=== PATIENT | male | born 1995 | race Caucasian/White ===

== ENCOUNTER 2017-11-27 13:17 | Emergency (ER) | payer OTHER ==
[2017-11-27 13:36] VITALS: BP 129/82
--- NOTE | 2017-11-27 13:37 | EDPHY ---
H & P Stated Complaint: n/v, abd pain Time Seen by Provider: 11/27/17 13:37 - Personal History Current Tetanus/Diphtheria Vaccine: Yes Current Tetanus Diphtheria and Acellular Pertussis (TDAP): Yes - Medical/Surgical History Hx Asthma: No Hx Chronic Respiratory Disease: No Hx Diabetes: No Hx Cardiac Disease: No Hx Renal Disease: No Hx Cirrhosis: No Hx Alcoholism: No Hx HIV/AIDS: No Hx Splenectomy or Spleen Trauma: No Other PMH: denies - Social History Smoking Status: Current every day smoker Constitutional: Initial Vital Signs Temperature (C) 36.7 C 11/27/17 13:22 Heart Rate 106 H 11/27/17 13:22 Respiratory Rate 16 11/27/17 13:22 Blood Pressure 127/112 H 11/27/17 13:22 O2 Sat (%) 95 11/27/17 13:22 O2 Delivery Mode Room Air Allergies/Adverse Reactions: No Known Allergies Allergy (Unverified 11/27/17 13:21) Home Medications: Medication Instructions Recorded NK [No Known Home Meds] 11/27/17 ZYRTEC 11/27/17 Medical Decision Making ED Course/Re-evaluation: CHIEF COMPLAINT: Nausea, vomiting HISTORY OF PRESENT ILLNESS: The patient is a 22 y/o male complaining of multiple, intermittent episodes of nausea, vomiting, and abdominal pain onset 6 months ago. These episodes have been occurring more frequently and last around 8-12 hours. These symptoms start around 4 hours after eating food. He has also had 2 episodes of diarrhea, but this is not a regular symptom. Last night he had another episode and noticed a very small amount of blood in his vomit. Denies food intolerance or abdominal surgeries. He has been smoking marijuana regularly for the past 6 years. He is currently feeling good and has no symptoms. Denies chest pain, shortness of breath, urinary complaints, numbness, paresthesias, fever. REVIEW OF SYSTEMS: A 10 point review of systems was performed and is negative with the exception of the elements mentioned in the history of present illness. PHYSICAL EXAM: HR, BP, O2 Sat, RR. Temp noted General Appearance: Alert, well hydrated, appropriate, and non-toxic appearing. Head: Atraumatic without scalp tenderness or obvious injury Eyes: Pupils equal, round, reactive to light and accommodation, EOMI, no trauma , no injection. Ears: Clear bilaterally, no perforation, normal landmarks Nose: Atraumatic, no rhinorrhea, clear. Throat: There is no erythema or exudates, no lesions, normal tonsils, mucus membranes moist. Neck: Supple, nontender, no lymphadenopathy. Respiratory: No retractions, no distress, no wheezes, and no accessory muscle use. Lungs are clear to auscultation bilaterally. Cardiovascular: Regular rate and rhythm, no murmurs, rubs, or gallops. Good capillary refill all extremities. Gastrointestinal: Abdomen is soft, nontender, non-distended, no masses, no rebound, no guarding, no peritoneal signs. Musculoskeletal: Normal active ROM of all extremities, atraumatic. Neurological: Alert, appropriate, and interactive. Non-focal neuro. Skin: No rashes, good turgor, no nodules on palpation. Past medical history: Denies Past surgical history: Denies Family history: Noncontributory Social history: Recently moved to [place], [facility] DIFFERENTIAL DIAGNOSIS: The differential diagnosis for the patient's nausea and vomiting included but was not limited to gastroenteritis, gastritis, appendicitis, and medication side effect. MEDICAL DECISION MAKING: The patient is a 22 y/o male presenting with multiple, intermittent episodes of nausea, vomiting, and abdominal pain onset 6 months ago. His physical exam is normal and his abdomen is benign. He is currently asymptomatic. Labs and 1L IV NS ordered, imaging studies are not indicated at this time. 1547: Reassessed patient and discussed normal laboratory findings. Patient's symptoms are consistent with recurrent gastroenteritis vs. irritable bowel syndrome vs. cyclic vomiting. I have referred him to a automatic thread winder. Return precautions provided; patient is comfortable with this plan. - Data Points Laboratory Results: Laboratory Results 11/27/17 13:52 11/27/17 13:52 11/27/17 11/27/17 13:52 13:52 WBC 10.29 10^3/uL H 10^3/uL (3.80-9.50) RBC 5.67 10^6/uL 10^6/uL (4.40-6.38) Hgb 17.9 g/dL H g/dL (13.7-17.5) Hct 50.6 % % (40.0-51.0) MCV 89.2 fL fL (81.5-99.8) MCH 31.6 pg pg (27.9-34.1) MCHC 35.4 g/dL g/dL (32.4-36.7) RDW 12.4 % % (11.5-15.2) Plt Count 285 10^3/uL 10^3/uL (150-400) MPV 10.3 fL fL (8.7-11.7) Neut % (Auto) 58.1 % % (39.3-74.2) Lymph % (Auto) 33.4 % % (15.0-45.0) [place] % (Auto) 7.8 % % (4.5-13.0) Eos % (Auto) 0.2 % L % (0.6-7.6) Baso % (Auto) 0.2 % L % (0.3-1.7) Nucleat RBC Rel Count 0.0 % % (0.0-0.2) Absolute Neuts (auto) 5.98 10^3/uL 10^3/uL (1.70-6.50) Absolute Lymphs (auto) 3.44 10^3/uL H 10^3/uL (1.00-3.00) Absolute Monos (auto) 0.80 10^3/uL 10^3/uL (0.30-0.80) Absolute Eos (auto) 0.02 10^3/uL L 10^3/uL (0.03-0.40) Absolute Basos (auto) 0.02 10^3/uL 10^3/uL (0.02-0.10) Absolute Nucleated RBC 0.00 10^3/uL 10^3/uL (0-0.01) Immature Gran % 0.3 % % (0.0-1.1) Immature Gran # 0.03 10^3/uL 10^3/uL (0.00-0.10) Sodium 139 mEq/L mEq/L (135-145) Potassium 4.8 mEq/L mEq/L (3.3-5.0) Chloride 104 mEq/L mEq/L (97-110) Carbon Dioxide 20 mEq/l L mEq/l (22-31) Anion Gap 15 mEq/L mEq/L (8-16) BUN 20 mg/dL mg/dL (7-23) Creatinine 0.8 mg/dL mg/dL (0.7-1.3) Estimated GFR > 60 Glucose 93 mg/dL mg/dL (70-100) Calcium 9.9 mg/dL mg/dL (8.5-10.4) Total Bilirubin 0.9 mg/dL mg/dL (0.1-1.4) Conjugated Bilirubin 0.4 mg/dL mg/dL (0.0-0.5) Unconjugated Bilirubin 0.5 mg/dL mg/dL (0.0-1.1) AST 24 IU/L IU/L (17-59) ALT 29 IU/L IU/L (21-72) Alkaline Phosphatase 78 IU/L IU/L (38-126) Total Protein 7.8 g/dL g/dL (6.3-8.2) Albumin 4.8 g/dL g/dL (3.5-5.0) Lipase 80 IU/L IU/L (23-300) Medications Given: Discontinued Medications Sodium Chloride (Ns) 1,000 mls @ 0 mls/hr IV ONCE ONE PRN Reason: Wide Open Stop: 11/27/17 13:54 Last Admin: 11/27/17 13:56 Dose: 1,000 mls Departure - Departure Disposition: Home, Routine, Self-Care Clinical Impression: Gastroenteritis Nausea & vomiting Qualifiers: Vomiting type: unspecified Vomiting Intractability: intractable Qualified Code( s): R11.2 - Nausea with vomiting, unspecified Condition: Good Instructions: Irritable Bowel Syndrome (ED), Gastroenteritis (ED), Cyclic Vomiting Syndrome (ED) Additional Instructions: 1. Follow-up with a automatic thread winder. 2. Follow-up with your primary doctor within 72 hours. You have been referred to [facility]. 3. Return to the Emergency Department for fever, chest pain, shortness of breath , increasing pain or other worsening of condition. Referrals: [facility],. [Clinic] - As per Instructions Jimbo Adrian MD [Medical Doctor] - As per Instructions Report Scribed for: Dragan Weinstein Report Scribed by: Ashley Esposito Date of Report: 11/27/17 Time of Report: 13:39
[2017-11-27] MEDS ORDERED: NS 1,000 ML IV ONE (13:53)
[2017-11-27 14:01] LABS: PLATELET COUNT 285 10^3/uL (150-400)
== END 2017-11-27 16:04 | disposition home or self-care (01) ==
DX: K52.9 Noninfective gastroenteritis and colitis, unspecified (principal); F17.200 Nicotine dependence, unspecified, uncomplicated